=== PATIENT | female | born 1965 | race Caucasian/White ===

== ENCOUNTER 2017-10-18 18:12 | Emergency (ER) | payer OTHER ==
[~2017-10-18] VITALS: Ht 167.6 cm; Wt 106.6 kg
[~2017-10-18 18:12] MED LIST: FLOMAX PO; LISINOPRIL10 MG PO; PERCOCET 5-3251 EACH PO; PHENERGAN 25 MG25 M1 PO; PROZAC 20 MG20 MG; SYNTHROID150 MCG
[2017-10-18] MEDS ORDERED: SYNTHROID150 MCG PO (18:28)
[2017-10-18] MEDS ORDERED: LISINOPRIL10 MG PO ×2 (18:28→20:03)
[2017-10-18] MEDS ORDERED: PROZAC20 MG PO (18:29)
[2017-10-18 19:10] LABS: ABSOLUTE BASOPHILS 0.1 thou/uL (0.0-0.2); ABSOLUTE EOSINOPHILS 0.3 thou/uL (0.0-0.7); ABSOLUTE LYMPHOCYTES 2.1 thou/uL (0.8-5.3); ABSOLUTE MONOCYTES 0.5 thou/uL (0.0-1.2); ABSOLUTE NEUTROPHILS 4.9 thou/uL (1.6-8.1); EOSINOPHILS 3.8 %; HEMATOCRIT 45.9 % (37.0-47.0); LYMPHOCYTES 26.4 %; MCH 28.6 pg (26.0-34.0); MCHC 32.7 g/dL (28.0-37.0); MCV 87.6 fL (80.0-100.0); MONOCYTES 6.1 %; MPV 7.8 fl. (7.2-11.1); NUCLEATED RBCS 0 /100WBC; PLATELET COUNT* 297 thou/uL (150-400); POLYS 62.7 %; RBC 5.24 mil/uL (4.20-5.00); RDW-CV 13.4 % (10.5-14.5); WBC 7.8 thou/uL (4.0-11.0)
[2017-10-18 19:14] LABS: ANION GAP 7 mmol/L (7-16); BUN 9 mg/dL (7-18); CALCIUM 8.8 mg/dL (8.5-10.1); CHLORIDE 105 mmol/L (98-107); CO2 32 mmol/L (21-32); CREATININE 0.9 mg/dL (0.6-1.3); GLUCOSE 116 mg/dL (70-99); POTASSIUM 3.3 mmol/L (3.5-5.1); SODIUM 144 mmol/L (136-145)
[2017-10-18 19:19] LABS: INR 0.9
[2017-10-18 19:21] LABS: ALBUMIN 3.5 g/dL (3.4-5.0); ALKALINE PHOSPHATASE 67 U/L (46-116); SGOT 29 U/L (15-37); SGPT 38 U/L (30-65); TOTAL BILIRUBIN 0.3 mg/dL (<0.1-1.0); TOTAL PROTEIN 6.9 g/dL (6.4-8.2); TROPONIN-I LEVEL <0.06 ng/mL (<0.06)
[2017-10-18] MEDS ORDERED: SYNTHROID100 MCG PO (20:03)
[2017-10-18] MEDS ORDERED: TORADOL 10 MG T10 MG PO (20:27)
[2017-10-18 20:55] VITALS: BP 141/100
--- NOTE | 2017-10-19 15:32 | EKG ---
[place] [address] ELECTROCARDIOGRAM REPORT Name: DWIGHT SERNA Room: [facility]#: [id number] Admission: 10/18/17 Attend Phys: Discharge: 10/18/17 Date of : 69 Report #: [id number] THIS REPORT FOR: //name// [facility] ED Test Date: 2017-10-18 Test Time: 18:45:57 Pat Name: DWIGHT SERNA Department: Room: Gender: F [employer]: Keren RICHTER : 1965 Requested By: Bonita Pretty Order Number: [id number] MD: Santiago Fung Measurements Intervals [place] Rate: 76 P: 31 CA: 118 QRS: 65 QRSD: 102 T: 26 QT: 393 QTc: 442 Interpretive Statements Sinus rhythm Borderline short CA interval Compared to ECG 01/01/2015 17:19:24 No significant changes Electronically Signed On 10-19-2017 15:32:34 [employer] by Santiago Fung [email or web address] <ELECTRONICALLY SIGNED> By: Santiago Fung MD, [facility] 10/19/17 1532 [id number] [id number] Santiago Fung MD, FACC /EPI
== END 2017-10-18 20:56 | disposition home or self-care (01) ==
LOC: M.ERS 18:12
PROVIDERS: Nurse Practitioner Family
DX: R51 Headache (principal); I10 Essential (primary) hypertension; E03.9 Hypothyroidism, unspecified; Z88.5 Allergy status to narcotic agent; Z88.0 Allergy status to penicillin; Z88.8 Allergy status to other drugs, medicaments and biological substances; Z91.013 Allergy to seafood